=== PATIENT | female | born 1945 | race Caucasian/White ===

== ENCOUNTER 2018-09-06 20:05 | Emergency (ER) | payer MEDICARE, SELFPAY ==
[2018-09-06 20:06] VITALS: BP 115/64; PULSE 85; RESP 19; TEMP 36.5; O2SAT 98; BMI 31.1
[2018-09-06 21:52] LABS: Absolute Lymphocyte Count 1.57 X10^3/ul (0.83-4.51); Absolute Neutrophil Count 4.9 X10^3/uL (2.0-7.7); Basophil# 0.03 X10^3/uL; Basophil% 0.4 % (0-1); Eosinophil# 0.13 X10^3/uL; Eosinophils% 1.8 % (0-5); Hematocrit 33.4 % (37-47); Hemoglobin 9.8 g/dl (12.0-15.0); Lymphocyte # 1.57 X10^3/ul (4.0); Lymphocyte % 21.5 % (19-41); Mean Corp Hgb Conc 29.3 g/gl (32-36); Mean Corpuscular Hgb 31.1 pg (27.0-32.0); Mean Platelet Vol. 9.3 fl (6.2-12.0); Monocyte# 0.67 X10^3/uL; Monocyte% 9.2 % (0-10); Neutrophil # 4.89 X10^3/uL (2.7-7.7); Neutrophil % 66.8 % (47-70); Platelet Count 73 K/mm3 (150-450); RBC Distribution Width CV 16.3 % (11.6-14.6); RBC Distribution Width SD 63.2 fl (35.1-43.9); Red Blood Count 3.15 M/mm3 (4.2-5.4); White Blood Count 7.3 K/mm3 (4.4-11.0)
[2018-09-06 21:53] LABS: POSITIVE COUNT NO; POSITIVE DIFFERENTIAL NO; POSITIVE MORPHOLOGY NO
[2018-09-06 21:57] LABS: Anion Gap 12 (5-15); BUN 46 mg/dL (7-18); BUN/Creat Ratio 7.2 RATIO (10-20); Calcium,Total 8.7 mg/dL (8.5-10.1); Chloride 103 mmol/L (98-107); Creatinine, Serum 6.43 mg/dL (0.55-1.02); EST Glomerular Filtration Rate 7 mL/min (>60); Est Glom Filt Rate - Afr Amer 8 mL/min (>60); Estimated Creatinine Clearance 7.51 ml/min; Glucose 90 mg/dL (74-106); Potassium 4.7 mmol/L (3.5-5.1); Sodium Level 135 mmol/L (136-145)
[2018-09-06 22:26] VITALS: BP 139/113; PULSE 80; RESP 18; TEMP 36.7; O2SAT 97
--- NOTE | 2018-09-06 22:32 | EKG12_ITS ---
Test Reason : GENERAL ILLNESS Blood Pressure : / mmHG Vent. Rate : 080 BPM Atrial Rate : 080 BPM P-R Int : 000 ms QRS Dur : 154 ms QT Int : 432 ms P-R-T Axes : 000 013 034 degrees QTc Int : 498 ms Ventricular-paced rhythm Biventricular pacemaker detected Abnormal ECG Confirmed by CHINEDU JONES, JOAQUIN ([id number]), purchase request editor RAYNE SHIRLEY ([id number]) on 09/12/2018 9:51:58 AM Referred By: FAUSTINO Confirmed By:JOAQUIN CHE MD
--- NOTE | 2018-09-06 22:40 | RAD_ITS ---
STUDY: X-RAY CHEST REASON FOR EXAM: Female, 73 years old. Diarrhea. TECHNIQUE: Single AP portable view of the chest. COMPARISON: Prior comparison studies are not available for review at this time. FINDINGS: There is a right-sided dual-chamber pacemaker in place. There is a small granuloma in the left midlung zone. No focal infiltrate is seen. The right midlung zone is obscured by pacemaker battery. There is no demonstrated pleural abnormality. Sternal cerclage wires and vascular clips are present from a prior sternotomy and coronary artery bypass graft procedure (CABG). The heart is mildly enlarged. Normal mediastinum and dev. Normal visualized pulmonary arteries. There is atherosclerotic tortuosity of the aortic arch and descending thoracic aorta. The thoracic spine is obscured Normal visualized ribs, clavicles, and shoulders. There is no demonstrated abnormality of the visualized soft tissue structures of the upper abdomen. RAD/Chest 1 View (Portable) IMPRESSION: 1. Status post CABG. 2. Mild cardiomegaly. 3. Right pacemaker in place. 4. No active pulmonary disease. Electronically Signed: Horace Moody MD at 23:08 EST Tel , Service support ,
--- NOTE | 2018-09-06 23:19 | ED.VISSUMM ---
- ER Visit Summary Date of Service: 09/06/18 Chief Complaint: Diarrhea History of Present Illness: The patient is a 73 F who presents with diarrhea and generalized weakness. She is chronically weak. She complains of about 4-5 episodes of diarrhea per day over the last 3 days. She missed her dialysis yesterday. Patient and family state that they want to do dialysis at her usual dialysis center if she has diarrhea because they are not allowed to help her up. No fevers. No pain. No nausea or vomiting. Physical Examination: Afebrile vitals are unremarkable Moist mucous membranes Heart regular rate and rhythm Lungs are clear Abdomen soft nontender nondistended Alert Test Results: EKG shows paced rhythm at a rate of 80. Labs notable for hemoglobin 9.8, platelets 73. BUN 46 and creatinine 6.43. Potassium normal. Chest x-ray shows status post CABG, no active disease, no pulmonary edema. Emergency Department Course and Treatment: Patient has normal vital signs she does not have evidence of pulmonary edema or acute congestive heart failure and her electrolytes are unremarkable. She can have her usual dialysis tomorrow. I see no indication for hospitalization. The patient herself wants to go home and states that she can go to dialysis tomorrow. Family was requesting that she just be admitted tonight to have dialysis tomorrow. I explained that there is no indication for hospitalization. They note that it is difficult to get her up and move around but that they are able to do so. Treatment Plan: [] Disposition: Discharge Impression: Diarrhea Weakness This note was generated with [employer]ling[employer] dictation software. It may contain incorrect words, spelling, and punctuation that were not noted in review of the chart prior to signing ED Disposition - Plan for ED Patient: Chief Complaint: Nausea/Vomiting/Diarrhea Referrals: Herbert Musa [Primary Care Provider] -
--- NOTE | 2018-09-06 23:22 | ED.DCSUM_ITS ---
- ER Visit Summary Date of Service: 09/06/18 Chief Complaint: Diarrhea History of Present Illness: The patient is a 73 F who presents with diarrhea and generalized weakness. She is chronically weak. She complains of about 4-5 episodes of diarrhea per day over the last 3 days. She missed her dialysis yest erday. Patient and family state that they want to do dialysis at her usual dialysis center if she has diarrhea because they are not allowed to help her up. No fevers. No pain. No nausea or vomiting. Physical Examination: Afebrile vitals are unremarkable Moist mucous membranes Heart regular rate and rhythm Lungs are clear Abdomen soft nontender nondistended Alert Test Results: EKG shows paced rhythm at a rate of 80. Labs notable for hemoglobin 9.8, platelets 73. BUN 46 and creatinine 6.43. Potassium normal. Chest x-ray shows status post CABG, no active disease, no pulmonary edema. Emergency Department Course and Treatment: Patient has normal vital signs she does not have evidence of pulmonary edema or acute congestive heart failure and her electrolytes are unremarkable. She can have her usual dialysis tomorrow. I see no indication for hospitalization. The patient herself wants to go home and states that she can go to dialysis tomorrow. Family was requesting that she just be admitted tonight to have dialysis tomorrow. I explained that there is no indication for hospitalization. They note that it is difficult to get her up and move around but that they are able to do so. Treatment Plan: [] Disposition: Discharge Impression: Diarrhea Weakness This note was generated with [facility] dictation software. It may contain incorrect words, spelling, and punctuation that were not noted in review of the chart prior to signing ED Disposition - Plan for ED Patient: Chief Complaint: Nausea/Vomiting/Diarrhea Referrals: Herbert Musa [Primary Care Provider] -
--- NOTE | 2018-09-06 23:22 | ED.DEP ---
ED Disposition - Plan for ED Patient: Chief Complaint: Nausea/Vomiting/Diarrhea Instructions: ED Diet Vomiting Diarrhea Referrals: Herbert Musa [Primary Care Provider] -
--- NOTE | 2018-09-06 23:40 | ED.RN ---
SPOKE WITH DR HARMON. OKAY TO CONTINUE WITH DISCHARGE WITH NO URINE OR STOOL.
[2018-09-06 23:47] VITALS: BP 103/77; PULSE 80; RESP 18; O2SAT 95
[2018-09-06 23:55] VITALS: BP 103/77; PULSE 80; RESP 18; O2SAT 95
== END 2018-09-06 23:55 | disposition home or self-care (01) ==
PROVIDERS: Emergency Provider Emergency Medicine; Family Provider Internal Medicine; PCP Internal Medicine
DX: R19.7 Diarrhea, unspecified (principal); R53.1 Weakness; I25.10 Atherosclerotic heart disease of native coronary artery without angina pectoris; I12.0 Hypertensive chronic kidney disease with stage 5 chronic kidney disease or end stage renal disease; E11.22 Type 2 diabetes mellitus with diabetic chronic kidney disease; N18.6 End stage renal disease; Z99.2 Dependence on renal dialysis; Z79.4 Long term (current) use of insulin; Z79.82 Long term (current) use of aspirin; Z79.01 Long term (current) use of anticoagulants; Z79.899 Other long term (current) drug therapy
CPT/HCPCS: 36415; 71045; 80048; 85025; 93005; 99284; J7040; A4216